=== PATIENT | female | born 1965 | race Two or more races ===

== ENCOUNTER 2022-05-23 15:03 | Outpatient (CLI) | payer OTHER | END 2022-05-23 15:06 | disposition home or self-care (01) | LOC: SONOGRAMA 15:03 | PROVIDERS: ATTEND Pathology Anatomic Pathology & Clinical Pathology | DX: E04.1 Nontoxic single thyroid nodule (principal) ==

== ENCOUNTER 2024-03-22 10:41 | Outpatient (CLI) | payer OTHER | END 2024-03-22 10:43 | disposition home or self-care (01) | LOC: SONOGRAMA 10:41 | PROVIDERS: ATTEND Pathology Anatomic Pathology & Clinical Pathology | DX: D34 Benign neoplasm of thyroid gland (principal); E07.89 Other specified disorders of thyroid; E04.1 Nontoxic single thyroid nodule ==